=== PATIENT | male | born 1980 | race Caucasian/White ===

== ENCOUNTER 2016-09-19 16:04 | Inpatient (IN) | payer MEDICAID, OTHER ==
--- NOTE | 2016-09-19 16:34 | ER Document Report ---
ED Medical Screen (RME) - General Stated Complaint: CAT SCRATCH CONCERN Time seen by provider: 16:31 Mode of Arrival: Ambulatory Information source: Patient Notes: 36 yo male presents to ed for infected cat scratches and bites to right lower leg with redness and pain up to his knee. TRAVEL OUTSIDE OF THE [place] IN LAST 30 DAYS: No - HPI Onset: Other - cat bit him 3 days ago Onset/Duration: Gradual, Worse Quality of pain: Sharp, Throbbing Severity: Severe Pain Level: 5 Associated Symptoms: Chills, Nausea, Other - was taking tramadol and no relief Exacerbated by: Denies Relieved by: Denies Similar symptoms previously: No Recently seen / treated by doctor: No - Related Data Smoking: Cigarettes, Less than 1 pack/day Frequency of alcohol use: Occasional Drug Abuse: None Allergies/Adverse Reactions: No Known Allergies Allergy (Verified 03/09/16 20:39) Past Medical History - Social History Family history: DM, Malignancy Renal/ Medical History: Reports: Hx Kidney Stones Musculoskeltal Medical History: Reports Hx Musculoskeletal Trauma - Anterior cruciate ligament tear Skin Medical History: Reports Hx Cellulitis - Immunizations Immunizations up to date: No Hx Diphtheria, Pertussis, Tetanus Vaccination: No Physical Exam - Vital signs Vitals: Temp Pulse Resp BP Pulse Ox 99.6 F 113 H 18 135/93 H 99 09/19/16 16:16 09/19/16 16:16 09/19/16 16:16 09/19/16 16:16 09/19/16 16:16 Course - Vital Signs Vital signs: Temp Pulse Resp BP Pulse Ox 99.6 F 113 H 18 135/93 H 99 09/19/16 16:16 09/19/16 16:16 09/19/16 16:16 09/19/16 16:16 09/19/16 16:16
[2016-09-19] MEDS ORDERED: ACETAMINOPHEN 325 MG TABLET PO ONE (16:35)
[2016-09-19] MEDS ORDERED: ONDANSETRON 4 MG TAB.RAPDIS PO ONE (16:35)
[2016-09-19 17:10] LABS: ALANINE AMINOTRANSFERASE 56 U/L (21-72); ALBUMIN 4.8 g/dL (3.5-5.0); ALKALINE PHOSPHATASE 90 U/L (38-126); ANION GAP 14 (5-19); ASPARTATE AMINO TRANSFERASE 28 U/L (17-59); BILIRUBIN,TOTAL 1.2 mg/dL (0.2-1.3); BLOOD UREA NITROGEN 11 mg/dL (7-20); CALCIUM 9.9 mg/dL (8.4-10.2); CARBON DIOXIDE 26 mmol/L (22-30); CHLORIDE 100 mmol/L (98-107); CREATININE RESULT 0.91 mg/dL (0.52-1.25); GLUCOSE 92 mg/dL (75-110); POTASSIUM 4.6 mmol/L (3.6-5.0); SODIUM 139.7 mmol/L (137-145); TOTAL PROTEIN 7.8 g/dL (6.3-8.2)
[2016-09-19 17:16] LABS: HEMATOCRIT 47.1 % (37.9-51.0); HEMOGLOBIN 16.5 g/dL (13.5-17.0); HGB HCT DIFFERENCE 2.4; MEAN CORPUSCULAR HEMOGLOBIN 31.1 pg (27.0-33.4); MEAN CORPUSCULAR VOLUME 89 fl (80-97); RED BLOOD COUNT 5.29 10^6/uL (4.35-5.55); RED CELL DISTRIBUTION WIDTH 12.6 % (11.5-14.0)
[2016-09-19 17:20] LABS: BAND NEUTROPHILS % (MANUAL) 1 % (3-5); BASOPHILS % (MANUAL) 0 % (0-2); EOSINOPHILS % (MANUAL) 0 % (0-6); LYMPHOCYTES % (MANUAL) 3 % (13-45); TOTAL CELLS COUNTED 100
[2016-09-19 17:21] LABS: RBC MORPHOLOGY COMMENT NORMO-CYTIC/CHROMIC
[2016-09-19] MEDS ORDERED: NORMAL SALINE 1000 ML 1,000 ML IV ONE (18:55)
[2016-09-19] MEDS ORDERED: PIPERACILLIN/TAZOBACTAM 3.375 GM VIAL IV ONE (18:55)
[2016-09-19] MEDS ORDERED: VANCOMYCIN HCL INJ 1000 MG VIAL IV ONE (18:55)
[2016-09-19] MEDS ORDERED: AZITHROMYCIN 250 MG TABLET PO ONE (18:55)
[2016-09-19] MEDS ORDERED: HYDROCODONE/ACETAMINOPHEN 5-325 MG TABLET PO PRN (19:23)
[2016-09-19] MEDS ORDERED: ONDANSETRON HCL INJ/PF 4 MG/2 ML SDV IV PRN (19:24)
[2016-09-19] MEDS ORDERED: HYDRALAZINE HCL INJ/PF 20 MG/1 ML SDV IV PRN (19:24)
[2016-09-19] MEDS ORDERED: ACETAMINOPHEN 325 MG TABLET PO PRN (19:24)
--- NOTE | 2016-09-19 19:24 | ER Document Report ---
ED General - General Chief Complaint: Skin Problem Stated Complaint: CAT SCRATCH CONCERN Mode of Arrival: Ambulatory Notes: Patient is a 36-year-old male who is presenting with progressively worsening cellulitis of the right lower extremity after his cat scratched him 2 days ago. States shortly after receiving scratched she did have a spreading redness from the area of the wound. Today he developed a fever with associated flulike symptoms including nausea, body aches, and 6 extreme fatigue. He has not done anything to try to treat his symptoms. Has not seen his primary care doctor. No history of similar symptoms in the past. TRAVEL OUTSIDE OF THE [place] IN LAST 30 DAYS: No - HPI Onset: Other - 2 days ago Onset/Duration: Gradual Quality of pain: Burning Severity: Moderate Pain Level: 3 Associated symptoms: Body/muscle aches, Chills, Fever Exacerbated by: Denies Relieved by: Denies Similar symptoms previously: No Recently seen / treated by doctor: No - Related Data Allergies/Adverse Reactions: No Known Allergies Allergy (Verified 03/09/16 20:39) Past Medical History - General Information source: Patient - Social History Smoking Status: Current Every Day Smoker Frequency of alcohol use: Occasional Drug Abuse: None Lives with: Spouse/Significant other Family History: CAD, DM, Hyperlipidemia, Hypertension Patient has suicidal ideation: No Patient has homicidal ideation: No Renal/ Medical History: Reports: Hx Kidney Stones Musculoskeltal Medical History: Reports Hx Musculoskeletal Trauma - Anterior cruciate ligament tear Skin Medical History: Reports Hx Cellulitis - Immunizations Immunizations up to date: No Hx Diphtheria, Pertussis, Tetanus Vaccination: No Review of Systems - Review of Systems Notes: Constitutional: Positive for fever. HENT: Negative for sore throat. Eyes: Negative for visual changes. Cardiovascular: Negative for chest pain. Respiratory: Negative for shortness of breath. Gastrointestinal: Negative for abdominal pain, vomiting or diarrhea. Genitourinary: Negative for dysuria. Musculoskeletal: Negative for back pain. Skin: Positive for rash. Neurological: Negative for headaches, weakness or numbness. 10 point ROS negative except as marked above and in HPI. Physical Exam - Vital signs Vitals: Temp Pulse Resp BP Pulse Ox 99.6 F 113 H 18 135/93 H 99 09/19/16 16:16 09/19/16 16:16 09/19/16 16:16 09/19/16 16:16 09/19/16 16:16 Interpretation: Tachycardic Notes: PHYSICAL EXAMINATION: GENERAL: [place], somewhat dusky and diaphoretic HEAD: Atraumatic, normocephalic. EYES: Pupils equal round and reactive to light, extraocular movements intact, sclera anicteric, conjunctiva are normal. ENT: nares patent, oropharynx clear without exudates. Moderately dry mucous membranes. NECK: Normal range of motion, supple without lymphadenopathy LUNGS: Breath sounds clear to auscultation bilaterally and equal. No wheezes rales or rhonchi. HEART: Regular tachycardia without murmurs ABDOMEN: Soft, nontender, normoactive bowel sounds. No guarding, no rebound. No masses appreciated. EXTREMITIES: Normal range of motion, no pitting or edema. No cyanosis. NEUROLOGICAL: No focal neurological deficits. Moves all extremities spontaneously and on command. PSYCH: Normal mood, normal affect. SKIN: Warm, Dry, normal turgor, a large area of erythema over the tibial plateau of the right lower extremity and area of 13 x 7 cm. There is a scab in the central area of this that appears to be from the original Site. Course - Re-evaluation Re-evalutation: 09/20/16 02:33 Patient resents with symptoms consistent with sepsis likely secondary to an area of cellulitis on his right lower extremity. He was febrile and tachycardic at time of arrival. Prominent leukocytosis laboratories. He has inguinal lymphadenopathy and the areas of lattice is clearly spread aggressively just 2 days. Given patient's overall ill appearance, vitals, labs he has been admitted to the hospitalist for IV antibiotics which have been initiated here in the emergency department. His lactate is normal and he does not meet severe sepsis criteria at this time. - Vital Signs Vital signs: Temp Pulse Resp BP Pulse Ox 98.2 F 77 18 116/73 100 09/20/16 00:22 09/20/16 00:22 09/20/16 00:22 09/20/16 00:22 09/20/16 00:22 - Laboratory Result Diagrams: 09/19/16 16:40 09/19/16 16:40 Laboratory results interpreted by me: 09/19/16 16:40 WBC 20.0 H Seg Neuts % (Manual) 87 H Band Neutrophils % 1 L Lymphocytes % (Manual) 3 L Abs Neuts (Manual) 17.6 H Discharge - Discharge Clinical Impression: Cellulitis of right lower extremity, Cat scratch Sepsis Qualifiers: Sepsis type: sepsis due to unspecified organism Qualified Code(s): A41.9 - Sepsis, unspecified organism Condition: Fair Disposition: ADMITTED INPATIENT Admitting Provider: [place] [facility] Unit Admitted: Telemetry
[2016-09-19] MEDS ORDERED: VANCOMYCIN HCL 0 MG in DEXTROSE 5%-WATER 250 ML IV NR (19:30)
[2016-09-19] MEDS: KETOROLAC TROMETHAMINE INJ/PF 30 MG/1 ML SDV IV PRN (20:23)
[2016-09-19] MEDS: NORMAL SALINE 1000 ML 1,000 ML IV SCH ×2 (20:25→22:46)
[2016-09-19] MEDS: METHOCARBAMOL 750 MG TABLET PO SCH (22:45)
[2016-09-19] MEDS: HEPARIN SOD (PORCINE) 5,000 UNIT/ML 1 ML SYRINGE SUBCUT SCH (22:46)
[2016-09-19] MEDS: PIPERACILLIN SODIUM/TAZOBACTAM 4.5 GM in NORMAL SALINE 100 ML IV SCH (23:14)
[2016-09-20] MEDS ORDERED: NICOTINE 7 MG/24 HR PATCH.TD24 TD ONE (00:19)
[2016-09-20] MEDS: NORMAL SALINE 1000 ML 1,000 ML IV SCH (01:19)
--- NOTE | 2016-09-20 03:00 | PDOC H&P ---
History of Present Illness Admission Date/PCP: 09/19/16 19:24 MAHADKOJO DUONG Patient complains of: Right leg pain fever and weakness History of Present Illness: ERROL REBOLLAR is a 36 year old male with a past medical history of tobacco dependence who was bitten by his cat 3 days ago. He was placed on Augmentin over the last 48 hours with marketed worsening of erythema pain and swelling and fever. In the emergency room his found to have tachycardia and leukocytosis of 20,000 he started on empiric antibiotics referred to the hospitalist for admission. Past Medical History Psychiatric Medical History: Reports: Tobacco Dependency Social History Information Source: Patient Lives with: Family, Spouse/Significant other Smoking Status: Current Every Day Smoker Frequency of Alcohol Use: Rare Hx Recreational Drug Use: No Drugs: None Hx Prescription Drug Abuse: No - Advance Directive Resuscitation Status: Full Code Family History Family History: CAD, DM, Hyperlipidemia, Hypertension Parental Family History Reviewed: Yes Children Family History Reviewed: Yes Sibling(s) Family History Reviewed.: Yes Medication/Allergy Home Medications: Hydrocodone/Acetaminophen [[place] 5-325 mg Tablet] 1 tab PO Q4 PRN #16 tablet Ondansetron [Zofran Odt 4 mg Tablet] 1 tab PO Q4H PRN #15 tab.rapdis 03/09/16 Ondansetron [Zofran Odt 4 mg Tablet] 1 - 2 tab PO Q4H #20 tab.rapdis 03/11/16 Oxycodone HCl/Acetaminophen [Percocet 5-325 mg Tablet] 1 - 2 tab PO ASDIR PRN # 20 tablet 03/11/16 Clindamycin HCl 300 mg PO ASDIR #56 capsule 03/15/16 Ondansetron [Zofran Odt 4 mg Tablet] 1 - 2 tab PO Q4H #10 tab.rapdis 04/29/16 Tramadol HCl [Ultram] 50 mg PO Q6 #30 tablet 04/29/16 Methocarbamol [Robaxin 750 mg Tablet] 750 mg PO QID #40 tablet 07/25/16 Naproxen [Naprosyn 250 Nmg Tablet] 500 mg PO BIDP PRN #30 tablet 07/25/16 Sulfamethoxazole/Trimethoprim [Bactrim Ds Tablet] 1 each PO BID #20 tablet 07/25 Allergies/Adverse Reactions: No Known Allergies Allergy (Verified 03/09/16 20:39) Review of Systems Constitutional: PRESENT: fatigue, fever(s), weakness Eyes: ABSENT: visual disturbances Ears: ABSENT: hearing changes Cardiovascular: ABSENT: chest pain, dyspnea on exertion, edema, orthropnea, palpitations Respiratory: ABSENT: cough, hemoptysis Gastrointestinal: ABSENT: abdominal pain, constipation, diarrhea, hematemesis, hematochezia, nausea, vomiting Genitourinary: ABSENT: dysuria, hematuria Musculoskeletal: ABSENT: joint swelling Integumentary: ABSENT: rash, wounds Neurological: ABSENT: abnormal gait, abnormal speech, confusion, dizziness, focal weakness, syncope Psychiatric: ABSENT: anxiety, depression, homidical ideation, suicidal ideation Endocrine: ABSENT: cold intolerance, heat intolerance, polydipsia, polyuria Hematologic/Lymphatic: ABSENT: easy bleeding, easy bruising Physical Exam Vital Signs: Temp Pulse Resp BP Pulse Ox 98.2 F 74 18 116/73 100 09/20/16 00:22 09/20/16 02:00 09/20/16 00:22 09/20/16 00:22 09/20/16 00:22 Intake & Output 09/18/16 09/19/16 09/20/16 11:59 11:59 11:59 Weight 86.9 kg General appearance: PRESENT: severe distress, other - Toxic appearing and diaphoretic Head exam: PRESENT: atraumatic, normocephalic Eye exam: PRESENT: conjunctiva pink, EOMI, PERRLA. ABSENT: scleral icterus Ear exam: PRESENT: normal external ear exam Mouth exam: PRESENT: moist, tongue midline Neck exam: ABSENT: carotid bruit, JVD, lymphadenopathy, thyromegaly Respiratory exam: PRESENT: clear to auscultation emily. ABSENT: rales, rhonchi, wheezes Cardiovascular exam: PRESENT: RRR. ABSENT: diastolic murmur, rubs, systolic murmur Pulses: PRESENT: normal dorsalis pedis pul Vascular exam: PRESENT: normal capillary refill GI/Abdominal exam: PRESENT: normal bowel sounds, soft. ABSENT: distended, guarding, mass, organolmegaly, rebound, tenderness Rectal exam: PRESENT: deferred Extremities exam: PRESENT: full ROM, +1 edema. ABSENT: calf tenderness, clubbing, pedal edema Musculoskeletal exam: PRESENT: other Neurological exam: PRESENT: alert, awake, oriented to person, oriented to place , oriented to time, oriented to situation, CN II-XII grossly intact. ABSENT: motor sensory deficit Psychiatric exam: PRESENT: appropriate affect, normal mood. ABSENT: homicidal ideation, suicidal ideation Skin exam: PRESENT: erythema, mottled, warm. ABSENT: cyanosis, rash Adult Front & Back Image: 1 - Marketed erythema and swelling with anterior puncture wounds Assessment & Plan - Diagnosis (1) Cat bite Is this a current diagnosis for this admission?: YesPlan: Outpatient failure of Augmentin, sirs syndrome is now started on vancomycin, Zosyn, and azithromycin IV fluid challenge and blood culture and follow-up labs (2) SIRS (systemic inflammatory response syndrome) Is this a current diagnosis for this admission?: YesPlan: Correction of the underlying cause, empiric antibiotics, IV fluid challenge and symptomatically management (3) Tobacco abuse Is this a current diagnosis for this admission?: YesPlan: Tobacco Dependence patient received tobacco cessation counseling and offered nicotine replacement options
[2016-09-20] MEDS: HEPARIN SOD (PORCINE) 5,000 UNIT/ML 1 ML SYRINGE SUBCUT SCH ×2 (05:18→13:47)
[2016-09-20] MEDS: KETOROLAC TROMETHAMINE INJ/PF 30 MG/1 ML SDV IV PRN (05:18)
[2016-09-20] MEDS: VANCOMYCIN HCL 1,000 MG in DEXTROSE 5%-WATER 250 ML IV SCH ×2 (05:18→13:47)
[2016-09-20] MEDS: PIPERACILLIN SODIUM/TAZOBACTAM 4.5 GM in NORMAL SALINE 100 ML IV SCH ×2 (05:19→12:18)
[2016-09-20 06:40] LABS: ABSOLUTE EOSINOPHILS # (AUTO) 0.1 10^3/uL (0.0-0.6); ABSOLUTE LYMPHOCYTES (AUTO) 1.4 10^3/uL (0.5-4.7); ABSOLUTE NEUT (AUTO) 10.6 10^3/uL (1.7-8.2); BASOPHILS % (AUTO) 0.2 % (0-2); EOSINOPHILS % (AUTO) 0.9 % (0-6); HEMATOCRIT 39.4 % (37.9-51.0); HGB HCT DIFFERENCE 1.7; LYMPHOCYTES % (AUTO) 10.5 % (13-45); MEAN CORPUSCULAR HEMOGLOBIN 31.2 pg (27.0-33.4); MEAN CORPUSCULAR HGB CONC 34.8 g/dL (32.0-36.0); MEAN CORPUSCULAR VOLUME 90 fl (80-97); MONOCYTES % (AUTO) 7.7 % (3-13); RED BLOOD COUNT 4.39 10^6/uL (4.35-5.55); RED CELL DISTRIBUTION WIDTH 12.6 % (11.5-14.0); SEGMENTED NEUTROPHILS % (AUTO) 80.7 % (42-78); WHITE BLOOD COUNT 13.1 10^3/uL (4.0-10.5)
[2016-09-20 06:58] LABS: HEMOGLOBIN 13.7 g/dL (13.5-17.0)
[2016-09-20 07:00] LABS: ANION GAP 8 (5-19); BLOOD UREA NITROGEN 9 mg/dL (7-20); CALCIUM 8.3 mg/dL (8.4-10.2); CARBON DIOXIDE 24 mmol/L (22-30); CHLORIDE 108 mmol/L (98-107); CREATININE RESULT 0.85 mg/dL (0.52-1.25); GLUCOSE 105 mg/dL (75-110); POTASSIUM 4.1 mmol/L (3.6-5.0); SODIUM 140.3 mmol/L (137-145)
[2016-09-20] MEDS ORDERED: KETOROLAC TROMETHAMINE INJ/PF 30 MG/1 ML SDV IV PRN (07:30)
[2016-09-20] MEDS ORDERED: DOCUSATE SODIUM 100 MG CAPSULE PO SCH (10:00)
[2016-09-20] MEDS: METHOCARBAMOL 750 MG TABLET PO SCH ×2 (10:26→13:44)
[2016-09-20] MEDS ORDERED: AMOXICILLIN TR/POT CLAVULANATE 500-125 MG TAB PO ONE (13:45)
[2016-09-20 14:09] VITALS: BP 107/71
--- NOTE | 2016-09-20 15:05 | PDOC DISCHARGE SUMMARY ---
General - Admit/Disc Date/PCP Admission Date/Primary Care Provider: 09/19/16 19:24 CROW DUONG Discharge Date: 09/20/16 - Discharge Diagnosis (1) Cellulitis of right lower extremity Is this a current diagnosis for this admission?: YesSummary: Patient reportedly by ED was taking oral antibiotics. Patient denies this his pharmacy reports no antibiotics being filled. He had leucocytosis of 20k, fever of 100.2 and tachycardia of 100-110 bpm on arrival. He is insisting to be discharged this afternoon to take care of a personal manner that his is unable to do for him. It was explained to the patient that it would be in his best interest to stay until we have at least preliminary blood culture results back. He states he can not but is unable to do so. He was given a dose of Augmentin 1000mg po x 1 and then will be discharged home against medical advice. (2) Cat bite Is this a current diagnosis for this admission?: YesSummary: Patient's own cat bit him. He states the cat normally has always been an indoor cat until recently he let it out because it was "spraying.." in the house. He states its shots are current,. Erythema is much improved no lymphangitic streaking, no further fever or tachycardia (3) Tobacco abuse Is this a current diagnosis for this admission?: YesSummary: Patient was counseled regarding tobacco abuse (4) SIRS (systemic inflammatory response syndrome) Is this a current diagnosis for this admission?: YesSummary: Resolved with IV antibiotics and fluids - Additional Information Resuscitation Status: Full Code Discharge Activity: Activity As Tolerated, Balance Activity w/Rest Home Medications: Tramadol HCl [Ultram] 50 mg PO Q6 #30 tablet 04/29/16 Methocarbamol [Robaxin 750 mg Tablet] 750 mg PO QID #40 tablet 07/25/16 Naproxen [Naprosyn 250 mg Tablet] 500 mg PO BIDP PRN #30 tablet 07/25/16 Acetaminophen [Tylenol 325 mg Tablet] 650 mg PO Q6HP PRN tablet 09/20/16 Amox Tr/Potassium Clavulanate [Augmentin 875-125 mg Tablet] 1 tab PO BID #20 tablet 09/20/16 Hydrocodone/Acetaminophen [[place] 5-325 mg Tablet] 1 tab PO Q6HP PRN #20 tablet 09/20/16 History of Present Illness Patient complains of: Right lower leg redness and pain. Fever after being bitten by cat 2 days ago History of Present Illness: ERROL REBOLLAR is a 36 year old male who presents to the ED on 09/19/2016 with complaints of right lower extremity redness, swelling and pain. He states he was bitten by his own cat 2 days ago. He has had increasing erythema around the bite extending almost 6 cm proximal and distal to the wound. He was noted to have temperature of 100.2, heart rate of 110, and blood pressure of 102/62. He is noted to have white count of 20,000 on initial CBC. He was given IV fluids, blood cultures 2 were obtained, and he was started on broad-spectrum IV antibiotics. He was referred to the hospitalist service for admission. Hospital Course Hospital Course: Patient was admitted to telemetry floor. This morning his leg erythema is greatly improved. Pain has improved. His fever and tachycardia have resolved. I was called later today the patient's nurse stating patient and his are insistent that he be discharged. Once again explained to the patient blood cultures have not returned would be in his best interest if he stayed until he did. He states he needs to be discharged today for a time sensitive manner only he can take care of. He states he was not taking any antibiotics prior to his arrival here. His symptoms have now resolved. He understands that it's against general medical practitioner that he is being discharged. He was given 1 dose of Augmentin thousand milligrams 1. He'll be given he will be given a prescription for Augmentin 875 one tablet twice a day for the next 10 days. He understands if symptoms worsen, he needs to return to the ED. Physical Exam Vital Signs: Temp Pulse Resp BP Pulse Ox 98.3 F 82 80 H 107/71 100 09/20/16 14:06 09/20/16 14:06 09/20/16 14:06 09/20/16 14:06 09/20/16 14:06 Intake & Output 09/19/16 09/20/16 09/21/16 06:59 06:59 06:59 Intake Total 2800 Balance 2800 Weight 88.2 kg General appearance: PRESENT: no acute distress, well-developed, well-nourished Head exam: PRESENT: atraumatic, normocephalic Eye exam: PRESENT: conjunctiva pink, EOMI, PERRLA. ABSENT: scleral icterus Ear exam: PRESENT: normal external ear exam Mouth exam: PRESENT: moist, tongue midline Neck exam: ABSENT: carotid bruit, JVD, lymphadenopathy, thyromegaly Respiratory exam: PRESENT: clear to auscultation emily. ABSENT: rales, rhonchi, wheezes Cardiovascular exam: PRESENT: RRR. ABSENT: diastolic murmur, rubs, systolic murmur Pulses: PRESENT: normal dorsalis pedis pul Vascular exam: PRESENT: normal capillary refill GI/Abdominal exam: PRESENT: normal bowel sounds, soft. ABSENT: distended, guarding, mass, organolmegaly, rebound, tenderness Rectal exam: PRESENT: deferred Extremities exam: PRESENT: calf tenderness - right anterior calf cat bite, now with minor surrounding erythema, full ROM. ABSENT: clubbing, pedal edema Neurological exam: PRESENT: alert, awake, oriented to person, oriented to place , oriented to time, oriented to situation, CN II-XII grossly intact. ABSENT: motor sensory deficit Psychiatric exam: PRESENT: appropriate affect, normal mood. ABSENT: homicidal ideation, suicidal ideation Skin exam: PRESENT: dry, intact, warm, other - Cat bite to right anterior. ABSENT: cyanosis, rash Results Laboratory Results: 09/20/16 05:47 09/20/16 05:47 09/20/16 09/20/16 05:47 05:47 WBC 13.1 H RBC 4.39 Hgb 13.7 D Hct 39.4 MCV 90 MCH 31.2 MCHC 34.8 RDW 12.6 Plt Count 153 Seg Neutrophils % 80.7 H Lymphocytes % 10.5 L Monocytes % 7.7 Eosinophils % 0.9 Basophils % 0.2 Absolute Neutrophils 10.6 H Absolute Lymphocytes 1.4 Absolute Monocytes 1.0 Absolute Eosinophils 0.1 Absolute Basophils 0.0 Sodium 140.3 Potassium 4.1 Chloride 108 H Carbon Dioxide 24 Anion Gap 8 BUN 9 Creatinine 0.85 Est GFR ( Amer) > 60 Est GFR (Non-Af Amer) > 60 Glucose 105 Calcium 8.3 L Qualifiers PATEINT BEING DISCHARGED WITH ANY OF THE FOLLOWING DIAGNOSIS?: No Plan Discharge Plan: Patient discharged home with with Augmentin 875 mg bid x 10 days Time Spent: Less than 30 Minutes
[2016-09-20] MEDS ORDERED: AZITHROMYCIN 500 MG in DEXTROSE 5%-WATER 250 ML IV SCH (18:00)
== END 2016-09-20 14:24 | disposition home or self-care (01) | DRG 605 ==
LOC: ER 16:04 → EH 19:24 → 4N 21:59
PROVIDERS: ADMIT Internal Medicine; ATTEND Internal Medicine
DX: S81.852A Open bite, left lower leg, initial encounter (principal); L03.115 Cellulitis of right lower limb; W55.01XA Bitten by cat, initial encounter; F17.210 Nicotine dependence, cigarettes, uncomplicated; Z79.899 Other long term (current) drug therapy; Z79.2 Long term (current) use of antibiotics; Z83.3 Family history of diabetes mellitus; Z82.49 Family history of ischemic heart disease and other diseases of the circulatory system
CPT/HCPCS: 36415; 80048; 80053; 83036; 83605; 85025; 87040; 99284; J1644; J1885; J2543; J3370; J3490; J7030; J7060; S0119

== ENCOUNTER 2016-10-22 09:41 | Emergency (ER) | payer MEDICAID ==
[2016-10-22] MEDS ORDERED: IBUPROFEN 800 MG TABLET PO ONE (10:19)
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
[2016-10-22 13:16] VITALS: BP 120/80
== END 2016-10-22 13:16 | disposition home or self-care (01) ==
LOC: ER 09:41
DX: M25.551 Pain in right hip (principal); M25.562 Pain in left knee; Y04.8XXA Assault by other bodily force, initial encounter; F17.210 Nicotine dependence, cigarettes, uncomplicated
CPT/HCPCS: 99283; 73502; 73562; J3490

== ENCOUNTER 2017-02-11 17:51 | Emergency (ER) | payer MEDICAID ==
[2017-02-11] MEDS ORDERED: LIDOCAINE 1% INJ-PF (10 MG/ML) 30 ML SDV ONE (19:02)
[2017-02-11] MEDS ORDERED: SULFAMETHOXAZOLE/TRIMETHOPRIM 800-160 MG TABLET PO ONE (19:31)
[2017-02-11] MEDS ORDERED: CEPHALEXIN 500 MG CAPSULE PO ONE (19:31)
[2017-02-11] MEDS ORDERED: HYDROCODONE/ACETAMINOPHEN 5-325 MG 6 TAB/DSPK PO PRN (19:33)
--- NOTE | 2017-02-11 19:37 | ER Document Report ---
ED Skin Rash/Insect Bite/Abscs - General Chief Complaint: Abscess Stated Complaint: ABSCESS Time Seen by Provider: 02/11/17 19:30 Mode of Arrival: Ambulatory Information source: Patient Notes: 36-year-old male presents to ED for abscess to the right buttocks and right arm. He states they started about 3 days ago as a small bump that has progressed to a large red swollen tender area. He states he has had these in the past that of the I&D. He states he does not know if he has a history of MRSA. TRAVEL OUTSIDE OF THE [place] IN LAST 30 DAYS: No - HPI Patient complains to provider of: Tender/swollen area Onset: Other - 3 days Onset/Duration: Gradual Quality of pain: Sharp, Throbbing Severity: Moderate Pain Level: 4 Skin Character: Abscess Skin Temperature: Hot Quality of rash: Painful Identify cause: No Exacerbated by: Sitting, Movement Relieved by: Denies Similar symptoms previously: Yes Recently seen / treated by doctor: No - Related Data Allergies/Adverse Reactions: No Known Allergies Allergy (Verified 10/22/16 10:12) Past Medical History - General Information source: Patient - Social History Smoking Status: Current Every Day Smoker Cigarette use (# per day): Yes - Pack per day Chew tobacco use (# tins/day): No Smoking Education Provided: Yes - Less than 2 minutes Frequency of alcohol use: None Drug Abuse: None Occupation: [employer] Lives with: Spouse/Significant other Family History: Arthritis, CAD, COPD, DM, Hyperlipidemia, Hypertension, Malignancy, Thyroid Disfunction - Past Medical History Cardiac Medical History: Reports: None Pulmonary Medical History: Reports: None EENT Medical History: Reports: None Neurological Medical History: Reports: None Endocrine Medical History: Reports: None Renal/ Medical History: Reports: Hx Kidney Stones Malignancy Medical History: Reports None GI Medical History: Reports: None Musculoskeltal Medical History: Reports Hx Musculoskeletal Trauma - Anterior cruciate ligament tear Skin Medical History: Reports Hx Cellulitis Psychiatric Medical History: Reports: None Traumatic Medical History: Reports: None Infectious Medical History: Reports: None Surgical Hx: Negative - Immunizations Immunizations up to date: No Hx Diphtheria, Pertussis, Tetanus Vaccination: No Review of Systems - Review of Systems Constitutional: No symptoms reported EENT: No symptoms reported Cardiovascular: No symptoms reported Respiratory: No symptoms reported Gastrointestinal: No symptoms reported Genitourinary: No symptoms reported Male Genitourinary: No symptoms reported Musculoskeletal: No symptoms reported Skin: Other - Swollen tender red area to the right buttocks and right arm Hematologic/Lymphatic: No symptoms reported Neurological/Psychological: No symptoms reported Physical Exam - Vital signs Vitals: Temp Pulse Resp BP Pulse Ox 97.8 F 75 16 137/93 H 96 02/11/17 18:44 02/11/17 18:44 02/11/17 18:44 02/11/17 18:44 02/11/17 18:44 Interpretation: Normal - General General appearance: Appears well, Alert - HEENT Head: Normocephalic, Atraumatic Eyes: Normal Pupils: PERRL - Respiratory Respiratory status: No respiratory distress Chest status: Nontender Breath sounds: Normal Chest palpation: Normal - Cardiovascular Rhythm: Regular Heart sounds: Normal auscultation Murmur: No - Abdominal Inspection: Normal Distension: No distension Bowel sounds: Normal Tenderness: Nontender Organomegaly: No organomegaly - Back Back: Normal, Nontender - Extremities General upper extremity: Normal inspection, Nontender, Normal color, Normal ROM , Normal temperature General lower extremity: Normal inspection, Nontender, Normal color, Normal ROM , Normal temperature, Normal weight bearing. No: Mary's sign - Neurological Neuro grossly intact: Yes Cognition: Normal Orientation: AAOx4 Florentino Coma Scale Eye Opening: Spontaneous [place] Coma Scale Verbal: Oriented [place] Coma Scale Motor: Obeys Commands Florentino Coma Scale Total: 15 Speech: Normal Motor strength normal: LUE, RUE, LLE, RLE Sensory: Normal - Psychological Associated symptoms: Normal affect, Normal mood - Skin Skin Temperature: Warm Skin Moisture: Dry Skin Color: Normal Skin irregularity: Abscess Location of irregularity: Extremities - Arm right, Other - Right buttock Irregularity with: Swelling, Tenderness, Warmth Course - Re-evaluation Re-evalutation: 02/11/17 20:54 I&D the patient was treated with Keflex and Bactrim and sent home with prescription for the same. - Vital Signs Vital signs: Temp Pulse Resp BP Pulse Ox 97.8 F 92 15 155/99 H 98 02/11/17 18:44 02/11/17 19:50 02/11/17 19:50 02/11/17 19:50 02/11/17 19:50 Procedures - Incision and Drainage Right Buttock Type: Simple mL's of anesthetic: 5 Blade size: 11 I&D procedure: Other - surgical scrub Incision Method: Incision made by scalpel Amount/type of drainage: Small amount of purulent Discharge - Discharge Clinical Impression: Abscess of left buttock, Abscess of right arm Condition: Stable Disposition: HOME, SELF-CARE Instructions: Family Physicians / Practices Additional Instructions: ABSCESS: You have an abscess (boil). This a pus-forming infection, usually due to staph. Some boils may be left to drain on their own, but most require lancing. From the time the tender lump first appears, it may be three or four days before the abscess is ready to lucero. Local heat and rest help at this stage of treatment. An antibiotic may prevent spread of the infection. Once the abscess is opened, packing may be placed into it. This is done so pus is not sealed inside by premature closure of the cavity. The packing will be removed at your follow-up visit or you may be advised to remove it yourself at home. Sometimes this packing must be replaced a few times during healing. The wound will heal with surprisingly little scar. Depending on the size and location of an abscess, healing can take one to four weeks. You may shower and wash the area around the incision site two or three times a day. Antibiotics may be prescribed, but are usually not necessary after an abscess has been drained. If you develop fever, chills, worsening pain, or increasing swelling in the area, call the doctor or return immediately. POST INCISION AND DRAINAGE: You have had an incision made to allow drainage of an abscess. The incision must remain open so that pus and debris can drain from the wound. If the abscess cavity is large, packing is placed. This keeps the tissues from collapsing and trapping pus inside, while the body shrinks the cavity. The packing may need to be replaced every day or two. The physician will instruct you on the packing. Keep a bulky dressing over the area. Replace it if it becomes saturated with blood or pus. Do not disturb the packing (if present). You may shower and cleanse the area with gentle soap and warm water two or three times a day. Local warmth may be soothing, and may promote faster healing. Return if you develop high fever or chills, or if you note spreading redness, increasing swelling, or increasing tenderness. CEPHALEXIN: The antibiotic you've been prescribed is a member of the cephalosporin class. This type of antibiotic covers a wide variety of infections, including those of the skin, lungs, and urinary tract. It's useful for staph infections. This antibiotic is slightly similar to the penicillin family. In rare cases , a person who is allergic to penicillin will also be allergic to this medication. If you have had a severe allergic reaction to penicillin, and have not taken this antibiotic since that time, notify your doctor. Antibiotics which cover many germs ("broad spectrum" antibiotics) are more likely to cause diarrhea or "yeast" infections. Women prone to vaginal yeast problems may suffer an attack after taking this antibiotic. In infants, oral thrush (white spots "stuck" on the cheek) or yeast diaper rash may result. See your doctor if these problems occur. Call at once if you develop itching, hives , shortness of breath, or lightheadedness. TRIMETHOPRIM-SULFA: You have been given a prescription for trimethoprim-sulfa (TMS, Septra, Bactrim). This is a combination antibiotic of the sulfa class, often used for urinary tract infections, middle ear infections, bronchitis, shigella intestinal infection, and Pneumocystis pneumonia. TMS is usually well-tolerated. Occasional side effects include nausea and decreased appetite. Septra is not recommended for infants less than two months of age. Do not take this medication if you have experienced severe side effects or allergy to sulfa medicine. You should stop this medicine at once and contact your physician if you develop any rash, joint pain, shortness of breath, bruising, or jaundice ( yellow color in the skin), or if you develop any other new or unusual symptoms. Epsom Salt Soaks Soak the wound area in a container of warm epsom salt water. If you can't get the wound area into a bucket or matthews, use a folded towel soaked in the epsom salt solution and apply to the area. Use clean hot tap water (about the temperature of a very warm bath), mixing in about one (1) teaspoon for every pint of water. Two gallon --> 16 teaspoons Epsom Salts One gallon --> 8 teaspoons Epsom Salts Two quarts --> 4 teaspoons Epsom Salts One quart --> 2 teaspoons Epsom Salts Soak the wound for about 20 minutes while gently moving it around in the water. Repeat this four (4) times a day. FOLLOW-UP CARE: Most simple abscesses will not require a follow up visit. If you had packing placed in the abscess, remove it as instructed by the physician. If you have been referred to a physician for follow-up care, call the physicians office for an appointment as you were instructed or within the next two days. If you experience worsening or a significant change in your symptoms, return to the Emergency Department at any time for re-evaluation. Prescriptions: Cephalexin Monohydrate [Keflex 500 mg Capsule] 500 mg PO QID #20 capsule Mupirocin [Bactroban 2% Ointment 22 gm] 22 applic TP TID #1 tube Sulfamethoxazole/Trimethoprim [Septra-Ds 800-160 mg Tablet] 1 tab PO BID #20 tablet Forms: Elevated Blood Pressure, Smoking Cessation Education, Return to Work Referrals: CROW DUONG MD [Primary Care Provider] - Follow up as needed
[2017-02-11 19:58] VITALS: BP 155/99
== END 2017-02-11 19:58 | disposition home or self-care (01) ==
LOC: ER 17:51
PROC: 0H98XZZ Drainage of Buttock Skin, External Approach (ICD-10-PCS; principal; 2017-02-11)
DX: L02.31 Cutaneous abscess of buttock (principal); L02.413 Cutaneous abscess of right upper limb; F17.210 Nicotine dependence, cigarettes, uncomplicated
CPT/HCPCS: 99283; 87070; 87205; 87075; 87077; 87186; 10060; J3490

== ENCOUNTER 2020-01-28 16:25 | Emergency (ER) | payer SELFPAY ==
--- NOTE | 2020-01-28 17:11 | ER Document Report ---
ED Medical Screen (RME) - General Chief Complaint: Flank Pain Stated Complaint: RIGHT SIDE PAIN Time Seen by Provider: 01/28/20 17:07 Primary Care Provider: CROW DUONG MD [Primary Care Provider] - Follow up as needed Mode of Arrival: Wheelchair Information source: Patient Notes: 39-year-old male patient presenting to the emergency department with abdominal pain that started this morning at 9 AM. Patient reports pain to the right upper quadrant. He states pain is worse with movement. He states if he lays flat on his stomach the pain subsides. He has not taken any medications for this. He denies any nausea, vomiting, diarrhea or fevers. He has not had any abdominal surgeries. He does report that yesterday he did some intensive labor. Tenderness to the right upper quadrant. I have greeted and performed a rapid initial assessment of this patient. A comprehensive ED assessment and evaluation of the patient, analysis of test results and completion of the medical decision making process will be conducted by additional ED providers. I have specifically instructed the patient or family members with the patient to immediately return to any nursing staff should anything change in the patient's condition or with their chief complaint. TRAVEL OUTSIDE OF THE [place] IN LAST 30 DAYS: No - Related Data Allergies/Adverse Reactions: No Known Allergies Allergy (Verified 10/22/16 10:12) Past Medical History - Social History Family history: DM, Malignancy Renal/ Medical History: Reports: Hx Kidney Stones. Denies: Hx Peritoneal Dialysis Musculoskeltal Medical History: Reports Hx Musculoskeletal Trauma - Anterior cruciate ligament tear Skin Medical History: Reports Hx Cellulitis - Immunizations Immunizations up to date: No Hx Diphtheria, Pertussis, Tetanus Vaccination: No Physical Exam - Vital signs Vitals: Temp Pulse Resp BP Pulse Ox 98 F 73 16 142/83 H 99 01/28/20 16:30 01/28/20 16:30 01/28/20 16:30 01/28/20 16:30 01/28/20 16:30 Course - Vital Signs Vital signs: Temp Pulse Resp BP Pulse Ox 98 F 73 16 142/83 H 99 01/28/20 16:30 01/28/20 16:30 01/28/20 16:30 01/28/20 16:30 01/28/20 16:30 Doctor's Discharge - Discharge Referrals: CROW DUONG MD [Primary Care Provider] - Follow up as needed
[2020-01-28 17:39] LABS: ABSOLUTE EOSINOPHILS # (AUTO) 0.2 10^3/uL (0.0-0.6); ABSOLUTE LYMPHOCYTES (AUTO) 1.6 10^3/uL (0.5-4.7); ABSOLUTE MONOCYTES (AUTO) 0.6 10^3/uL (0.1-1.4); ABSOLUTE NEUT (AUTO) 7.1 10^3/uL (1.7-8.2); BASOPHILS % (AUTO) 0.5 % (0-2); EOSINOPHILS % (AUTO) 1.7 % (0-6); HEMATOCRIT 47.7 % (37.9-51.0); HEMOGLOBIN 16.9 g/dL (13.5-17.0); LYMPHOCYTES % (AUTO) 16.8 % (13-45); MEAN CORPUSCULAR HEMOGLOBIN 31.4 pg (27.0-33.4); MEAN CORPUSCULAR HGB CONC 35.4 g/dL (32.0-36.0); MEAN CORPUSCULAR VOLUME 89 fl (80-97); MONOCYTES % (AUTO) 6.3 % (3-13); PLATELET COUNT 201 10^3/uL (150-450); RED BLOOD COUNT 5.38 10^6/uL (4.35-5.55); SEGMENTED NEUTROPHILS % (AUTO) 74.7 % (42-78); TOTAL CELLS COUNTED % (AUTO) 100 %; WHITE BLOOD COUNT 9.5 10^3/uL (4.0-10.5)
[2020-01-28 17:47] LABS: APPEARANCE,URINE SLIGHTLY-CLOUDY; BILIRUBIN,URINE NEGATIVE (NEGATIVE); COLOR,URINE AMBER; GLUCOSE, URINE NEGATIVE (NEGATIVE); KETONES,URINE NEGATIVE (NEGATIVE); LEUKOCYTE ESTERASE,URINE NEGATIVE (NEGATIVE); NITRITE,URINE NEGATIVE (NEGATIVE); PROTEIN,URINE NEGATIVE (NEGATIVE); URINE SPECIFIC GRAVITY 1.031
[2020-01-28 17:54] LABS: ALBUMIN 4.3 g/dL (3.5-5.0); ALKALINE PHOSPHATASE 72 U/L (38-126); ANION GAP 6 (5-19); ASPARTATE AMINO TRANSFERASE 24 U/L (17-59); BILIRUBIN,TOTAL 0.5 mg/dL (0.2-1.3); BLOOD UREA NITROGEN 14 mg/dL (7-20); CALCIUM 9.8 mg/dL (8.4-10.2); CARBON DIOXIDE 25 mmol/L (22-30); CHLORIDE 106 mmol/L (98-107); GLUCOSE 124 mg/dL (75-110); POTASSIUM 4.4 mmol/L (3.6-5.0); TOTAL PROTEIN 7.4 g/dL (6.3-8.2)
--- NOTE | 2020-01-28 19:44 | ER Document Report ---
ED General - General Chief Complaint: Abdominal Pain Stated Complaint: RIGHT SIDE PAIN Time Seen by Provider: 01/28/20 17:07 Primary Care Provider: CROW DUONG MD [Primary Care Provider] - Follow up as needed Mode of Arrival: Wheelchair TRAVEL OUTSIDE OF THE [place] IN LAST 30 DAYS: No - HPI Notes: Patient is a 39-year-old male who presents to the emergency department for evaluation of pain in his right upper quadrant and his right flank. He states this started suddenly at 9 AM this morning. He denies any associated fever chills. No nausea or vomiting. He states his urine seems dark, he thought perhaps he had a kidney stone. He denies any urinary frequency or dysuria. Normal bowel movement earlier today. He states his pain is made better by laying supine. Nothing seems to make it worse. He does admit that the day before he had an extremely physically strenuous day, was doing a significant amount of work. - Related Data Allergies/Adverse Reactions: No Known Allergies Allergy (Verified 10/22/16 10:12) Past Medical History - General Information source: Patient - Social History Smoking Status: Current Every Day Smoker Chew tobacco use (# tins/day): No Frequency of alcohol use: Rare Drug Abuse: None Family History: Arthritis, CAD, COPD, DM, Hyperlipidemia, Hypertension, Reina gnancy, Thyroid Disfunction Patient has homicidal ideation: No Renal/ Medical History: Reports: Hx Kidney Stones. Denies: Hx Peritoneal Dialysis Musculoskeletal Medical History: Reports Hx Musculoskeletal Trauma - Anterior cruciate ligament tear Skin Medical History: Reports Hx Cellulitis - Immunizations Immunizations up to date: No Hx Diphtheria, Pertussis, Tetanus Vaccination: No Review of Systems - Review of Systems Genitourinary: See HPI -: Yes All other systems reviewed and negative Physical Exam - Vital signs Vitals: Temp Pulse Resp BP Pulse Ox 98 F 73 16 142/83 H 99 01/28/20 16:30 01/28/20 16:30 01/28/20 16:30 01/28/20 16:30 01/28/20 16:30 - Notes Notes: Vital signs reviewed, please refer to chart. Head is normocephalic, atraumatic. Pupils equal round, reactive to light. Neck is supple without meningismus. Heart is regular rate and rhythm. Lungs are clear to auscultation bilaterally. Abdomen is soft, mildly tender in the right upper and right lower quadrants without rebound or guarding, normoactive bowel sounds throughout. Positive right CVA tenderness. Extremities without cyanosis, clubbing. Posterior calves are nontender. Peripheral pulses are equal. Skin is warm and dry. Patient is awake, alert, neurological exam is nonfocal. Course - Re-evaluation Re-evalutation: 01/28/20 19:44 Patient presents to the emergency department for evaluation. Laboratory investigations as ordered through triage. He was given Toradol with minimal relief. The patient does have history of kidney stones, states this feels similar. I will order a CT scan of the abdomen pelvis without contrast to eval for this possibility. Patient is stable, we will continue to monitor. 01/28/20 20:[address] scan are largely unremarkable. I strongly suspect musculoskeletal etiology for this pain at this time. We will send him home with anti-inflammatories, muscle relaxers and close follow-up. He is to return to the ED with worsening. - Vital Signs Vital signs: Temp Pulse Resp BP Pulse Ox 98.0 F 65 18 142/93 H 97 01/28/20 21:15 01/28/20 21:15 01/28/20 21:15 01/28/20 21:15 01/28/20 21:15 - Laboratory Result Diagrams: 01/28/20 17:15 01/28/20 17:15 Laboratory results interpreted by me: 01/28/20 01/28/20 17:15 17:15 Glucose 124 H Urine Urobilinogen 4.0 H Discharge - Discharge Clinical Impression: Right flank pain Condition: Stable Disposition: HOME, SELF-CARE Instructions: Abdominal Pain ([facility]), Flank Pain ([facility]) Additional Instructions: I suspect your pain is musculoskeletal in nature. Please take medications as prescribed. Be sure to take them with food. Follow-up with primary care next week. If you develop fevers, vomiting, increased pain, or any other new or concerning symptoms, please return immediately to the emergency department for evaluation. Prescriptions: Naproxen [Naprosyn] 500 mg PO BID #20 tablet Methocarbamol [Robaxin-750] 750 mg PO TID PRN #21 tablet PRN Reason: Referrals: CROW DUONG MD [Primary Care Provider] - Follow up as needed
--- NOTE | 2020-01-28 20:31 | RADIOLOGY REPORT (SQ) ---
EXAM DESCRIPTION: CT ABDOMEN PELVIS WITHOUT IV CONTRAST January 28, 2020 at 7:55 PM CLINICAL HISTORY: right flank pain, eval for stone COMPARISON: None Available TECHNIQUE: Contiguous axial images of the abdomen and pelvis were obtained followed by reconstruction images. This exam was performed according to our departmental dose-optimization program, which includes automated exposure control, adjustment of the mA and/or kV according to patient size and/or use of iterative reconstruction technique. FINDINGS: The liver, spleen, pancreas and kidneys are within normal limits. There is no hydronephrosis or renal stones. The gallbladder is unremarkable by CT criteria. Adrenal glands are within normal limits. Aorta is of normal caliber and tapering. There is no free fluid in the abdomen or pelvis. There is no bowel obstruction. There is no stranding of the mesenteric fat to suggest an inflammatory response. The appendix is within normal limits. There is no pericecal inflammation. There is atherosclerosis. IMPRESSION: No acute intra-abdominal abnormality.
[2020-01-28 21:11] VITALS: BP 142/93
== END 2020-01-28 21:11 | disposition home or self-care (01) ==
LOC: ER 16:25
DX: R10.11 Right upper quadrant pain (principal); R10.9 Unspecified abdominal pain; F17.200 Nicotine dependence, unspecified, uncomplicated; Z87.442 Personal history of urinary calculi
CPT/HCPCS: 36415; 74176; 80053; 81001; 83690; 85025; 99284